=== PATIENT | female | born 1990 | race American Indian/Alaskan Native ===

== ENCOUNTER 2016-07-06 01:24 | Emergency (ER) | payer MEDICAID ==
--- NOTE | 2016-07-06 03:34 | Emergency Department Report ---
ED Female HPI - General Chief complaint: Rectal Pain Stated complaint: PAINFUL HEMORRHOIDS Time Seen by Provider: 07/06/16 03:14 Source: patient, family Mode of arrival: Ambulatory Limitations: No Limitations - History of Present Illness Initial comments: Patient here with her friend she reports she has been having rectal pain started 5 days ago with some spotting. She says she has a history of hemorrhoids and there back. She reports trying witch vladimir, sitz baths, tucks without any relief. She denies any bleeding today. She says she is unable to sit comfortable. Reports pain is 10 out of 10 to her rectal area hemorrhoids. She is has similar incident in the past. Denies hard stools or straining. Denies any heavy lifting. MD Complaint: other ([place]) Onset/Timin -: days(s) Location: other (hemorrhoids rectal area) Radiation: non-radiating Severity: severe Severity scale (0 -10): 10 Quality: other (throbbing) Consistency: intermittent Improves with: none Worsens with: movement, other (sitting) Are you Now?: No Last Menstrual Period: 06/11/16 EDC: 03/18/17 Associated Symptoms: denies: vaginal discharge, vaginal bleeding, abdominal pain , nausea/vomiting, fever/chills, headaches, loss of appetite, dysuria, hematuria , rash, seizure, shortness of breath, syncope, weakness - Related Data Sexually active: Yes Previous Rx's Medication Instructions Recorded Last Taken Type Hydrocortisone [Proctosol-Hc] 28.35 gm RC BID #1 cream.appl 07/06/16 Unknown Rx Lidocaine Viscous 2% 0.5 ml RC TID PRN #15 ml 07/06/16 Unknown Rx traMADol [Ultram] 50 mg PO Q6HR PRN #20 tablet 07/06/16 Unknown Rx Allergies Allergy/AdvReac Type Severity Reaction Status Date / Time No Known Allergies Allergy Unverified 07/06/16 03:35 ED Review of Systems ROS: Stated complaint: PAINFUL HEMORRHOIDS Other details as noted in HPI Comment: All other systems reviewed and negative Constitutional: denies: chills, fever Respiratory: no symptoms reported Cardiovascular: denies: chest pain, palpitations, edema, syncope Gastrointestinal: denies: nausea, vomiting Genitourinary: other (hemorrhoids). denies: urgency, dysuria, frequency, hematuria, discharge, abnormal menses Musculoskeletal: denies: back pain, arthralgia Skin: denies: rash Neurological: denies: headache ED Past Medical Hx - Past Medical History Previous Medical History?: No - Surgical History Past Surgical History?: Yes Additional Surgical History: c sect - Family History Family history: no significant - Social History Smoking Status: Former Smoker Substance Use Type: None - Medications Home Medications: Home Medications Medication Instructions Recorded Confirmed Last Taken Type Hydrocortisone [Proctosol-Hc] 28.35 gm RC BID #1 cream.appl 07/06/16 Unknown Rx Lidocaine Viscous 2% 0.5 ml RC TID PRN #15 ml 07/06/16 Unknown Rx traMADol [Ultram] 50 mg PO Q6HR PRN #20 tablet 07/06/16 Unknown Rx ED Physical Exam - General Limitations: No Limitations General appearance: alert, in no apparent distress - Head Head exam: Present: atraumatic, normocephalic, normal inspection - Neck Neck exam: Present: normal inspection, full ROM. Absent: tenderness, meningismus, lymphadenopathy - Respiratory Respiratory exam: Present: normal lung sounds bilaterally. Absent: respiratory distress, chest wall tenderness - Cardiovascular Cardiovascular Exam: Present: normal rhythm, tachycardia, normal heart sounds - GI/Abdominal GI/Abdominal exam: Present: soft, normal bowel sounds. Absent: distended, tenderness, guarding, rebound, rigid - Rectal Rectal exam: Present: hemorrhoids (external without bleeding), tenderness ( Hemrroids). Absent: normal inspection, black stool, bloody stool - Extremities Exam Extremities exam: Present: normal inspection, full ROM, normal capillary refill. Absent: tenderness, pedal edema, joint swelling, calf tenderness - Neurological Exam Neurological exam: Present: alert, oriented X3, normal gait, reflexes normal. Absent: motor sensory deficit - Psychiatric Psychiatric exam: Present: normal affect, normal mood - Skin Skin exam: Present: warm, dry, intact, normal color. Absent: rash ED Course Vital Signs 07/06/16 02:09 Temperature 98.5 F Pulse Rate 110 H Respiratory 20 Rate Blood Pressure 141/95 O2 Sat by Pulse 100 Oximetry Vital Signs 07/06/16 07/06/16 02:09 04:52 Temperature 98.5 F 98 F Pulse Rate 110 H 88 Respiratory 20 16 Rate Blood Pressure 141/95 Blood Pressure 133/86 [Left] O2 Sat by Pulse 100 100 Oximetry - Reevaluation(s) Reevaluation #1: 07/06/16 04:52 Topical lidocaine placed to hemorrhoids decided to leave pain. Patient given [place] 5/325 2 tablets in emergency room for pain management. Upon reevaluation , patient states relief of pain. 07/06/16 05:05 ED Medical Decision Making - Medical Decision Making ED course: She with external hemorrhoids to rectal area. No bleeding noted. Patient given topical lidocaine placed the site along with 5/325 mg 2 tablets by mouth. She reports relief of pain. Instructed patient that I will put her on topical steroid for hemorrhoid but if pain is not relieved hemorrhoid still exists that she'll need to follow up with primary care physician refer her to surgeon for removal of hemorrhoids. Patient was understanding of discharge instruction and discharged home with prescription for tramadol and ANUsol-HC Critical care attestation.: If time is entered above; I have spent that time in minutes in the direct care of this critically ill patient, excluding procedure time. ED Disposition Clinical Impression: External hemorrhoid, Rectal pain Disposition: DISCHARGED TO HOME OR SELFCARE Is pt being admited?: No Does the pt Need Aspirin: No Condition: Stable Prescriptions: Hydrocortisone [Proctosol-Hc] 28.35 gm RC BID #1 cream.appl Lidocaine Viscous 2% 0.5 ml RC TID PRN #15 ml PRN Reason: Hemorrhoids traMADol [Ultram] 50 mg PO Q6HR PRN #20 tablet PRN Reason: Pain Referrals: PRIMARY CAREMD [Primary Care Provider] - 2-3 Days SAVI MATOS MD [Staff Physician] - 3-5 Days Forms: Accompanied Note, Work/School Release Form(ED)
[2016-07-06] MEDS ORDERED: LIDOCAINE VISCOUS 2% TP ONE (03:35)
[2016-07-06] MEDS ORDERED: NORCO 5/325 PO ONE (03:35)
[2016-07-06 04:52] VITALS: BP 133/86
== END 2016-07-06 05:18 | disposition home or self-care (01) ==
LOC: ED 01:24
DX: K64.4 Residual hemorrhoidal skin tags (principal); Z87.891 Personal history of nicotine dependence
CPT/HCPCS: 99283